=== PATIENT | female | born 1950 | race Caucasian/White ===

== ENCOUNTER 2019-05-30 19:39 | Emergency (ER) | payer MEDICARE ==
[~2019-05-30] VITALS: Ht 172.7 cm; Wt 62.3 kg
[2019-05-30 19:42] VITALS: BP 144/51
--- NOTE | 2019-05-30 19:45 | NUR ---
mid triage pt had to get up and go to the BR. She said she has colitis. She walks with a cane. She states she went to the chiropractor today, that her pelvis is rotated and that is being worked on to realign it.
[2019-05-30] MEDS ORDERED: LIDOcaine 1% 30ml preserv. free vial IJ ONE (20:15)
[2019-05-30] MEDS ORDERED: TETanus/Pertussis (Acell)/Diphther VAC/PF (Tdap-Adult) 0.5ml syringe IM ONE (20:15)
--- NOTE | 2019-05-30 21:00 | NUR ---
LET PROVIDER KNOW THAT HE PUT THE WRONG SIDE ON ORDER FOR CULTURE, HE SAYS HE WILL FIX
--- NOTE | 2019-05-30 21:01 | NUR ---
CULTURE OF RIGHT MIDDLE FINGER WOUND SENT, VERIFIED ORDER IN PLACE, TECH WALKED TO LAB
[2019-05-30] MEDS ORDERED: SULF1TAB49 PO (21:11)
--- NOTE | 2019-05-30 21:31 | NUR ---
REMINDED PROVIDER TO FIX ORDER
== END 2019-05-30 21:30 | disposition home or self-care (01) ==
LOC: ER 19:40
DX: L03.011 Cellulitis of right finger (principal); Z79.2 Long term (current) use of antibiotics
CPT/HCPCS: 10060; 87070; 87077; 87186; 90471; 90715; 99283; J2001

== ENCOUNTER 2019-06-03 10:42 | Emergency (ER) | payer MEDICARE ==
[~2019-06-03] VITALS: Ht 172.7 cm; Wt 62.3 kg
[~2019-06-03 10:42] MED LIST: SULF1TAB49 PO
[2019-06-03] MEDS ORDERED: CLIN150C8 PO (12:15)
[2019-06-03] MEDS ORDERED: clindamycin 150mg capsule PO ONE (12:15)
[2019-06-03 12:26] VITALS: BP 108/60
== END 2019-06-03 12:27 | disposition home or self-care (01) ==
LOC: ER 10:42
DX: L03.012 Cellulitis of left finger (principal); L08.89 Other specified local infections of the skin and subcutaneous tissue
CPT/HCPCS: 99283